=== PATIENT | male | born 1945 | race Hispanic/Latino ===

== ENCOUNTER 2018-01-23 18:49 | Observation (INO) | payer OTHER ==
[~2018-01-23] VITALS: Ht 175.3 cm; Wt 63.5 kg
[~2018-01-23 18:49] MED LIST: AMIODARONE HCL200 MG PO; DECARA25000 UNIT PO; LISINOPRIL10 MG PO; LISINOPRIL2.5 MG PO; LOPRESSOR25 MG PO; PROTONIX IV40 MG PO; XARELTO20 MG PO
[2018-01-23 20:34] LABS: CLARITY,URINE CLOUDY (CLEAR); COLOR,URINE YELLOW (YELLOW); LEUKOCYTE ESTERASE ,URINE TRACE (NEGATIVE); NITRITE,URINE NEGATIVE (NEGATIVE); PROTEIN,URINE DIPSTICK 2+ (NEGATIVE)
[2018-01-23 20:35] LABS: BILIRUBIN,URINE 1+ (NEGATIVE); KETONES,URINE TRACE (NEGATIVE); URINE UROBILINOGEN 1 mg/dL (0.2 - 1)
[2018-01-23 20:41] LABS: BACTERIA,URINE RARE /HPF; MUCUS,URINE RARE (RARE)
[2018-01-23] MEDS ORDERED: WARFARIN SODIU2.5 MG PO (21:11)
[2018-01-23] MEDS ORDERED: METOPROLOL TART50 MG PO (21:11)
[2018-01-23 21:31] LABS: BASOPHILS % 0.1 % (0.0-1.0); EOSINOPHILS # (AUTO) 0.1 (0.0-0.4); EOSINOPHILS % 1.1 % (0.0-6.0); HEMATOCRIT 36.5 % (38.2-49.6); HEMOGLOBIN 12.7 g/dL (14.0-18.0); LYMPHOCYTES # (AUTO) 1.2 (1.0-3.2); LYMPHOCYTES % 13.6 % (18.0-39.1); MEAN CORPUSCULAR HEMOGLOBIN 34.8 pg (28-32); MEAN CORPUSCULAR HGB CONC 34.8 g/dL (31-35); MONOCYTES # (AUTO) 0.8 (0.2-0.8); MONOCYTES % 8.9 % (4.4-11.3); NEUTROPHILS # (AUTO) 6.5 (2.1-6.9); NEUTROPHILS % 75.9 % (38.7-80.0); PLATELET COUNT 200 x10e3/uL (140-360); RED BLOOD COUNT 3.65 x10e6/uL (4.3-5.7); RED CELL DISTRIBUTION WIDTH 13.8 % (11.7-14.4)
[2018-01-23 21:41] LABS: INR 11.07
[2018-01-23 21:42] LABS: PARTIAL THROMBOPLASTIN TIME 101.8 seconds (23.8-35.5); PROTHROMBIN TIME 81.1 seconds (11.9-14.5)
[2018-01-23] MEDS ORDERED: PHYTONADIONE 10 MG/ML AMP PO STA (21:42)
[2018-01-23 21:47] LABS: ALBUMIN 4.1 g/dL (3.5-5.0); ALBUMIN/GLOBULIN RATIO 1.2 (0.8-2.0); ANION GAP 13.8 mmol/L (8-16); CALCIUM 9.8 mg/dL (8.4-10.2); CREATININE, SERUM 1.21 mg/dL (0.72-1.25); POTASSIUM 4.8 mmol/L (3.5-5.1)
[2018-01-23] MEDS ORDERED: PANTOPRAZOLE 40 MG 10ML VIAL IV STA (22:02)
[2018-01-23] MEDS ORDERED: CEFTRIAXONE SOD 1 GM VIAL IV SCH (22:15)
[2018-01-23] MEDS ORDERED: ONDANSETRON HCL INJ 2 MG/ML VIAL IV PRN (22:15)
[2018-01-24] VITALS (8 sets, daily range): BP systolic 131–165; BP diastolic 58–70
[2018-01-24] MEDS ORDERED: SODIUM CHLORIDE 0.9% 250ML 250 ML ONE (01:02)
[2018-01-24 05:57] LABS: BASOPHILS % 0.1 % (0.0-1.0); EOSINOPHILS % 0.4 % (0.0-6.0); HEMATOCRIT 31.2 % (38.2-49.6); HEMOGLOBIN 10.8 g/dL (14.0-18.0); LYMPHOCYTES # (AUTO) 1.3 (1.0-3.2); LYMPHOCYTES % 17.2 % (18.0-39.1); MEAN CORPUSCULAR HEMOGLOBIN 34.4 pg (28-32); MEAN CORPUSCULAR HGB CONC 34.6 g/dL (31-35); MEAN CORPUSCULAR VOLUME 99.4 fL (81-99); MONOCYTES # (AUTO) 0.7 (0.2-0.8); MONOCYTES % 9.1 % (4.4-11.3); NEUTROPHILS # (AUTO) 5.4 (2.1-6.9); NEUTROPHILS % 72.9 % (38.7-80.0); PLATELET COUNT 158 x10e3/uL (140-360); RED BLOOD COUNT 3.14 x10e6/uL (4.3-5.7); RED CELL DISTRIBUTION WIDTH 13.7 % (11.7-14.4)
[2018-01-24 06:11] LABS: INR 2.76; PROTHROMBIN TIME 27.4 seconds (11.9-14.5)
[2018-01-24 06:12] LABS: PARTIAL THROMBOPLASTIN TIME 49.3 seconds (23.8-35.5)
[2018-01-24 06:20] LABS: ALANINE AMINOTRANSFERASE 10 IU/L (0-55); ALBUMIN 3.5 g/dL (3.5-5.0); ALBUMIN/GLOBULIN RATIO 1.1 (0.8-2.0); ALKALINE PHOSPHATASE 64 IU/L (40-150); BLOOD UREA NITROGEN 19 mg/dL (7-26); BUN/CREATININE RATIO 21 (6-25); CARBON DIOXIDE 27 mmol/L (22-29); CHLORIDE 106 mmol/L (98-107); CREATININE, SERUM 0.92 mg/dL (0.72-1.25); EST GLOMERULAR FILTRATION RATE > 60 ML/MIN (60-); GLUCOSE 108 mg/dL (74-118); SODIUM 141 mmol/L (136-145)
[2018-01-24] MEDS ORDERED: PANTOPRAZOLE 40 MG 10ML VIAL IV SCH (09:00)
--- NOTE | 2018-01-24 09:50 | Discharge Summary ---
PRIMARY CARE PHYSICIAN: Dr. Mak Franco CHIEF COMPLAINT: Coagulation. INR is 11. SUMMARY: A 72-year-old male with atrial fibrillation, on warfarin 5 mg once a day. He is also on amiodarone. The patient came in with an INR of 11 with bruises, but no gross bleed. Patient did receive FFP. INR today is 2. Discussed with patient at length. He stated that previously he could not get Xarelto because of insurance coverage, but now the patient's [facility] does cover for Xarelto. The patient will restart Xarelto 20 mg once a day and start it on Monday. Discussed with the patient at length. He is on amiodarone and that drug has interaction with warfarin. The patient is stable. No bleeding. Discussed with the patient. He will go home today. Job#: [id number] FABIAN
== END 2018-01-24 10:50 | disposition home or self-care (01) ==
LOC: ER 18:49 → ERHOLD 22:02 → MED/SURG 01-24
PROVIDERS: ADMIT Internal Medicine; ATTEND Internal Medicine
DX: S50.12XA Contusion of left forearm, initial encounter (principal); S50.11XA Contusion of right forearm, initial encounter; T45.515A Adverse effect of anticoagulants, initial encounter; Z86.718 Personal history of other venous thrombosis and embolism; Z79.01 Long term (current) use of anticoagulants; I10 Essential (primary) hypertension; I25.10 Atherosclerotic heart disease of native coronary artery without angina pectoris; Z95.5 Presence of coronary angioplasty implant and graft; N40.0 Benign prostatic hyperplasia without lower urinary tract symptoms
CPT/HCPCS: 36415 ×2; 36430 ×2; 80053 ×2; 81001; 85025 ×2; 85610 ×2; 85730 ×2; 86850; 86900; 87086; 93005; 99284; G0378 ×2; J0696; J3430; J7050; P9017

== ENCOUNTER 2018-12-05 13:52 | Inpatient (IN) | payer OTHER ==
[~2018-12-05] VITALS: Ht 175.3 cm; Wt 60.8 kg
[~2018-12-05 13:52] MED LIST changes: +METOPROLOL TART50 MG PO; +WARFARIN SODIU2.5 MG PO
[2018-12-05] MEDS ORDERED: DILTIAZEM HCL VIAL 5 ML ONE (14:29)
[2018-12-05] MEDS ORDERED: DILTIAZEM HCL 5 MG/ML 5 ML VIAL IV ONE (14:30)
[2018-12-05] MEDS ORDERED: DILTIAZEM HCL 125 ML IV ONE (14:45)
[2018-12-05 15:12] LABS: BASOPHILS % 0.2 % (0.0-1.0); EOSINOPHILS # (AUTO) 0.1 (0.0-0.4); EOSINOPHILS % 1.8 % (0.0-6.0); HEMATOCRIT 46.6 % (38.2-49.6); HEMOGLOBIN 16.3 g/dL (14.0-18.0); LYMPHOCYTES # (AUTO) 1.3 (1.0-3.2); LYMPHOCYTES % 26.7 % (18.0-39.1); MEAN CORPUSCULAR HEMOGLOBIN 33.8 pg (28-32); MEAN CORPUSCULAR VOLUME 96.7 fL (81-99); MONOCYTES # (AUTO) 0.5 (0.2-0.8); MONOCYTES % 10.3 % (4.4-11.3); NEUTROPHILS % 60.6 % (38.7-80.0); PLATELET COUNT 190 x10e3/uL (140-360); RED BLOOD COUNT 4.82 x10e6/uL (4.3-5.7); RED CELL DISTRIBUTION WIDTH 12.8 % (11.7-14.4)
[2018-12-05 15:16] LABS: INR 1.05; PARTIAL THROMBOPLASTIN TIME 33.5 seconds (23.8-35.5); PROTHROMBIN TIME 14.2 seconds (11.9-14.5)
[2018-12-05 15:23] LABS: ALANINE AMINOTRANSFERASE 40 IU/L (0-55); ALBUMIN/GLOBULIN RATIO 1.2 (0.8-2.0); ALKALINE PHOSPHATASE 87 IU/L (40-150); BLOOD UREA NITROGEN 16 mg/dL (7-26); BUN/CREATININE RATIO 14 (6-25); CALCIUM 9.6 mg/dL (8.4-10.2); CARBON DIOXIDE 26 mmol/L (22-29); CHLORIDE 107 mmol/L (98-107); CREATININE, SERUM 1.14 mg/dL (0.72-1.25); EST GLOMERULAR FILTRATION RATE > 60 ML/MIN (60-); GLUCOSE 78 mg/dL (74-118); MAGNESIUM 2.2 MG/DL (1.3-2.1); SODIUM 141 mmol/L (136-145)
[2018-12-05 15:42] LABS: THYROID STIMULATING HORMONE 1.303 uIU/mL (0.350-4.940)
[2018-12-05] MEDS ORDERED: ASPIRIN 81 MG CHEW TAB PO ONE (16:00)
[2018-12-05] MEDS ORDERED: ONDANSETRON HCL INJ 2MG/ML 2ML 2 MG/ML VIAL IV PRN (16:00)
[2018-12-05] MEDS ORDERED: SODIUM CHLORIDE FLUSH 10 ML SYR INJ PRN (16:00)
[2018-12-05] MEDS: FAMOTIDINE 20 MG/2 ML VIAL IV SCH (16:21)
--- NOTE | 2018-12-05 16:40 | Diagnostic Imaging Report ---
Examination: Single AP view of the chest. COMPARISON: None. INDICATION: Chest pain DISCUSSION: Lines/tubes: None. Lungs: The lungs are well inflated and clear. There is no evidence of pneumonia or pulmonary edema. Pleura: There is no pleural effusion or pneumothorax. Heart and mediastinum: The heart and the mediastinum are unremarkable for portable, AP technique.. Bones and soft tissues: No acute bony abnormalities. Degenerative changes in the thoracic spine. IMPRESSION: 1. No acute cardiopulmonary abnormalities. Signed by: Dr. Ismael Ochoa M.D. on 12/05/2018 4:37 PM
--- NOTE | 2018-12-05 17:15 | NUR ---
RECEIVED PATIENT FROM ER. PATIENT A/O X3, EVEN RESPIRATIONS ON RA. TELE #23 RUNNING A FIB. PATIENT AMBULATORY NO SIGNS OF DISTRESS. RIGHT AC [address] NO CHEST PAIN OR DISCOMFORT. VITAL SIGNS STABLE. BED LOW, WHEELS LOCKED, SIDE RAILS X2, CALL LIGHT IN REACH. WILL CONTINUE TO MONITOR PATIENT.
[2018-12-05 17:20] VITALS: BP 168/94
[2018-12-05 17:36] VITALS: BP 168/94
[2018-12-05 17:39] VITALS: BP 168/94
[2018-12-05] MEDS ORDERED: DILTIAZEM HCL ER 120 MG CAP PO SCH (18:00)
[2018-12-05] MEDS ORDERED: DILTIAZEM HCL LA 120MG 120 MG CAP PO SCH (18:00)
--- NOTE | 2018-12-05 19:20 | NUR ---
Report taken from claudy Olea.walking rounds done.no chest pain voiced.stable condition.
[2018-12-05 20:00] VITALS: BP 121/86
[2018-12-05] MEDS ORDERED: ENOXAPARIN SOD INJ 40 MG/0.4 ML SYR SC SCH (21:00)
[2018-12-05 21:10] VITALS: BP 121/86
--- NOTE | 2018-12-05 22:20 | NUR ---
Assessment done.aaox4.ambulates and voided.iv right ac#20 g patent.blood maria luisa from right hand with b.set and sent to the lab.pt tolerated well.bed locked and in lowest position.phone and call light within reach.informed to call for assistance as needed.
[2018-12-05 23:11] LABS: CREATINE KINASE MB 0.7 ng/mL (0-5.0)
[2018-12-06] VITALS (7 sets, daily range): BP systolic 109–139; BP diastolic 71–93
--- NOTE | 2018-12-06 03:00 | NUR ---
No chest pain.resting comfortably in the bed.stable condition.
[2018-12-06] MEDS: FAMOTIDINE 20 MG/2 ML VIAL IV SCH (04:00)
[2018-12-06 06:26] LABS: CHOL/HDL RATIO 3.2 (3.9-4.7)
[2018-12-06 06:32] LABS: CREATINE KINASE MB 0.6 ng/mL (0-5.0)
--- NOTE | 2018-12-06 06:52 | NUR ---
Bed side report given to the oncoming rn.walking rounds done.stable condition.
--- NOTE | 2018-12-06 07:25 | NUR ---
RECEIVED PATIENT ASLEEP IN BED NO SIGNS OF DISTRESS. BED LOW, WHEELS LOCKED, SIDE RAILS X2. CALL LIGHT IN REACH WILL CONTINUE TO MONITOR PATIENT.
--- NOTE | 2018-12-06 09:20 | NUR ---
PATIENT A/O X3, EVEN RESPIRATIONS ON RA. TELE #23 A FIB. VITAL SIGNS STABLE. NO SIGNS OF DISTRESS. PATIENT AMBULATES INDEPENDENTLY. CALL LIGHT IN REACH WILL CONTINUE TO MONITOR PATIENT.
[2018-12-06] MEDS: ASPIRIN 81 MG ENTERIC COATED PO SCH (09:33)
[2018-12-06] MEDS: AMIODARONE HCL 200 MG TAB PO SCH ×2 (09:33→16:39)
[2018-12-06] MEDS: LISINOPRIL 10 MG TAB PO SCH ×2 (09:34→16:40)
[2018-12-06] MEDS: METOPROLOL TARTRATE 25 MG TAB PO SCH ×2 (09:34→16:40)
[2018-12-06] MEDS: APIXABAN 5 MG TABLET PO SCH ×2 (09:34→16:39)
[2018-12-06 14:57] LABS: CREATINE KINASE MB 0.7 ng/mL (0-5.0)
[2018-12-06] MEDS: FAMOTIDINE 20 MG TAB PO SCH (16:39)
--- NOTE | 2018-12-06 16:40 | History and Physical ---
CHIEF COMPLAINT: Increase in rapid heart rate. PRIMARY CARE PHYSICIAN: Mak Franco MD SOIL SURVEYOR: Ismael Gandara MD HISTORY: The patient is a 73-year-old male, had atrial fibrillation on previously anticoagulant therapy with Xarelto, but he was unable to afford the medication. Therefore, he went off it. The patient has an unreliable history. He basically complained of some increasing shortness of breath, palpitations, and went to the emergency room for evaluation. The patient's heart rate was elevated. The patient was subsequently placed on his medication, given diltiazem and admitted to the hospital for further evaluation. The patient is otherwise stable at this time. PAST MEDICAL HISTORY: Atrial fibrillation, hypertension, was on anticoagulant therapy. PAST SURGICAL HISTORY: Noncontributory. SOCIAL HISTORY: The patient does not smoke or use alcohol. No recreational drugs. ALLERGIES: NO KNOWN ALLERGIES. HOME MEDICATIONS: Metoprolol and lisinopril. REVIEW OF SYSTEMS: Resolved chest pain. No abdominal pain. No headache. No palpitation. PHYSICAL EXAMINATION: VITAL SIGNS: Temperature is 97, blood pressure 123/84, pulse rate 60, and respirations 18. GENERAL: The patient is not in acute distress. He is awake. HEENT: Normocephalic and atraumatic. Anicteric. NECK: Supple grossly. PULMONARY: Clear. CARDIOVASCULAR: Atrial fibrillation, rate controlled. ABDOMEN: Soft and unremarkable. EXTREMITIES: No cyanosis or edema. NEUROLOGIC: No gross focal deficit. LABORATORY DATA: Sodium is 141, potassium 4, chloride 107, bicarb 26, BUN 16, creatinine 1.1, and glucose 78. WBC 4.9, hemoglobin 16.3, hematocrit 46.6, and platelets is 190. INR is 1.05. Liver enzyme unremarkable. Chest x-ray is unremarkable. IMPRESSION: 1. Atrial fibrillation with rapid ventricular rate or response. 2. Hypertension. PLAN: Adjust the patient's rate control medication. The patient will get on Lovenox for now, depending on further evaluation with Dr. Ismael Gandara. Dr. Ismael Gandara will see the patient as Cardiology consultation. Check echocardiogram. The patient will need anticoagulation when he discharged home. MD MOISE Boland/MODL /[id number]
[2018-12-06] MEDS ORDERED: APIXABAN 5 MG TABLET PO SCH (17:00)
--- NOTE | 2018-12-06 17:06 | NUR ---
REPORT CALLED TO [facility] FOR ROOM 209. PATIENT BEING TRANSFERRED.
--- NOTE | 2018-12-06 17:14 | NUR ---
RCD PT FROM [facility] BY WHEELCHAIR PT IS ALERT AND ORIENTED VITALS CHECKED PT RESTING ON BED BED LOW AND LOCKED CALL LIGHT IN REACH
--- NOTE | 2018-12-06 17:15 | NUR ---
PATIENT TRANSFERRED TO ROOM 209 VIA WHEELCHAIR. PATIENT LEFT IN STABLE CONDITION.
--- NOTE | 2018-12-06 18:05 | Consultation ---
DATE OF CONSULTATION: Cardiology consultation CHIEF COMPLAINT: The patient is a 73-year-old with palpitations and shortness of breath. HISTORY OF PRESENT ILLNESS: The patient is a 73-year-old, who noticed his heart racing and he was short of breath. The patient came to the emergency room, and was found to be in atrial fibrillation. The patient has had no nausea, no vomiting, no abdominal pain. PAST MEDICAL HISTORY: Significant for, 1. Previous atrial fibrillation. 2. Previous ablation five years ago. 3. Previous reaction to warfarin. SOCIAL HISTORY: The patient does not drink, does not smoke. FAMILY HISTORY: There is no known family history of coronary artery disease. PHYSICAL EXAMINATION: GENERAL: The patient is a well-developed, well-nourished male, in no obvious distress. VITAL SIGNS: Temperature 96.7, pulse 81, and blood pressure is 112/71. HEAD, EARS, EYES, NOSE, AND THROAT: The patient's cranium was normocephalic and atraumatic. Extraocular muscles were intact. Sclerae are anicteric. Pupils are equal, round, reactive to light. There was no pallor, cyanosis of the oral mucosa. There is no erythema or edema of the throat. NECK: Supple. No jugular venous distention. No carotid bruits. CHEST: Clear to auscultation and percussion. CARDIAC: Demonstrated normal S1 and S2 with a short 2/6 systolic murmur. ABDOMEN: Demonstrated good bowel sounds. No tenderness and no masses. EXTREMITIES: No clubbing, no cyanosis, and no edema. NEUROLOGIC: The patient was alert and oriented x3. Cranial nerves II through XII are intact. Motor strength was +5/+5 in all limbs. DIAGNOSTIC DATA: The patient's EKG demonstrated atrial fibrillation. IMPRESSION: The patient is a 73-year-old with recurrent atrial fibrillation. RECOMMENDATIONS: My recommendations are as follows: 1. The patient will need to be started on amiodarone. 2. The patient will need to be started on Eliquis for anticoagulation. 3. An echocardiogram has been ordered. 4. An EP consult has been requested in order to evaluate the possibility of repeat ablation for atrial fibrillation. MD RANDALL Ball/MODL /[id number] cc: MD Jamel Calvo MD
--- NOTE | 2018-12-06 19:00 | NUR ---
PT RESTING ON BED BED SIDE REPORT GIVEN TO ONCOMING NURSE
--- NOTE | 2018-12-06 20:10 | NUR ---
FAMILY MEMBERS VISITING WITH THE PATIENT, NO ACUTE DISTRESS OBSERVED, HE DENIES DIZZINESS OR PAIN. CALL LIGHT WITHIN EASY REACH, HE'S INSTRUCTED TO CALL FOR ASSISTANCE NEEDED.
[2018-12-07] VITALS (13 sets, daily range): BP systolic 101–128; BP diastolic 55–107
--- NOTE | 2018-12-07 00:25 | NUR ---
WALKING ROUNDS MADE, PATIENT OBSERVED SOUNDLY ASLEEP WITHOUT RESPIRATORY DISTRESS. HEART RHYTHM REMAINS AT A-FIB.
--- NOTE | 2018-12-07 04:05 | NUR ---
PATIENT IS SOUNDLY ASLEEP, NO DISTRESS OBSERVED. RHYTHM A-FIB WITH RATE BETWEEN 130-136 HOWEVER HE'S ASYMPTOMATIC OF ELEVATED HEART RATE. WILL CONTINUE TO CLOSELY MONITOR.
--- NOTE | 2018-12-07 06:53 | NUR ---
DR FARR IS ON THE UNIT TO SEE THE PATIENT, HE'S MADE AWARE THAT THE PATIENT CONDITION IS STABLE HOWEVER HIS HEART RATE IS BETWEEN 130-136. MADE ADJUSTMENTS TO THE METOPROLOL AND AMIODARONE.
[2018-12-07] MEDS: APIXABAN 5 MG TABLET PO SCH ×2 (09:39→18:08)
[2018-12-07] MEDS: FAMOTIDINE 20 MG TAB PO SCH ×2 (09:39→16:30)
[2018-12-07] MEDS: ASPIRIN 81 MG ENTERIC COATED PO SCH (09:39)
[2018-12-07] MEDS: AMIODARONE HCL 200 MG TAB PO SCH ×4 (09:39→22:14)
[2018-12-07] MEDS: LISINOPRIL 10 MG TAB PO SCH ×2 (09:40→17:00)
[2018-12-07] MEDS: METOPROLOL TARTRATE 25 MG TAB PO SCH ×3 (09:40→22:14)
--- NOTE | 2018-12-07 12:44 | NUR ---
IMM letter delivered and explained to pt. He verbalized understanding. Signed copy placed in chart. Copy to pt's transition of care folder.
--- NOTE | 2018-12-07 15:37 | NUR ---
Patient is being taken to [facility]. Notified Dr. Gandara that patient had Eliquis this am. OK per Dr. Gandara to go ahead with heart catheterization. ALso notified him patient does not want to have life vest
[2018-12-07] MEDS ORDERED: MIDAZOLAM HCL 2 MG/2 ML VIAL ONE (15:55)
[2018-12-07] MEDS ORDERED: VERAPAMIL HCL 2.5 MG/ML 2 ML VIAL ONE (15:55)
[2018-12-07] MEDS ORDERED: LIDOCAINE HCL 2% LOCAL 20 ML VIAL ONE (15:55)
[2018-12-07] MEDS ORDERED: HEPARIN SOD/SOD CHLORIDE 2,000 ML ONE (15:55)
[2018-12-07] MEDS ORDERED: HEPARIN SOD (PORCINE) 1000 UNIT/ML 30ML ONE (15:55)
[2018-12-07] MEDS ORDERED: NITROGLYCERIN/D5W 200 MCG/ML 250 ML ONE (15:56)
[2018-12-07] MEDS ORDERED: SODIUM CHLORIDE 0.9% 1000ML 1,000 ML ONE (15:56)
[2018-12-07] MEDS ORDERED: IOPAMIDOL 370 MG/ML 200 ML INFUS..BTL INJ ONE (15:56)
[2018-12-07] MEDS ORDERED: AMIODARONE HCL 150 MG in DEXTROSE 5% 100ML 100 ML IV ONE (17:00)
[2018-12-07] MEDS ORDERED: AMIODARONE HCL 900 MG in DEXTROSE 5 % 500ML BOTTLE 500 ML IV ONE ×2 (17:00→23:30)
[2018-12-07] MEDS ORDERED: FENTANYL CITRATE/PF 100MCG/2 ML INJ ONE (17:04)
--- NOTE | 2018-12-07 17:14 | NUR ---
Patient has been transferred to ICU from medical laboratory technicians to start Amiodorone drip per Steve in the medical laboratory technicians
--- NOTE | 2018-12-07 17:56 | NUR ---
recvd from manager lab. amio started, tolerates well. family at bedside. updated poc. pt and family verbalize understanding and consent. rt groin intact. rt wrist with armband proceeding as ordered. bedrest until 2099. pt verbalizes understanding.
--- NOTE | 2018-12-07 20:45 | NUR ---
TR band removed and 4x4 pressure dressing applied. Pt instructed to help monitor the site for bleeding. Pt family member at the beside as well.
--- NOTE | 2018-12-07 23:27 | Operative Report ---
DATE OF PROCEDURE: SURGEON: Ismael Gandara MD INDICATIONS: 1. Congestive heart failure. 2. Coronary artery disease. PROCEDURE PERFORMED: Includes left heart catheterization. COMPLICATIONS: None. ANESTHESIA: Versed, fentanyl, and lidocaine. TECHNIQUE: The right groin was draped and prepped in the usual fashion. The area was anesthetized with lidocaine. Standard Seldinger technique was used to place a 6-Ethiopian sheath into the right femoral artery without difficulty. A JL4 catheter was used to selectively engage the left coronary artery. A 3DRC catheter was used to selectively engage the right coronary artery. A pigtail catheter was used to perform a left ventriculogram. Angio-Seal device was used for closure. There were no complications. RESULTS: 1. There was a normal left main trunk. 2. There was a large left anterior descending artery, which gave rise to a medium-sized diagonal branch. There was minimal disease in the left anterior descending artery and diagonal branch. 3. There was a medium-sized AV circumflex artery, which gave rise to a large bifurcating obtuse marginal branch. There was minimal disease in the circumflex system. 4. There was a large dominant right coronary artery with minimal disease. 5. There was an enlarged left ventricle with severe global left ventricular dysfunction and an ejection fraction of 20%. CONCLUSION: Minimal coronary artery disease with an enlarged left ventricle and severe left ventricular dysfunction. The patient's ejection fraction was 20%. Ismael Gandara MD DSH/MODL /[id number] cc: Jamel Alicea MD
[2018-12-08] VITALS (12 sets, daily range): BP systolic 119–133; BP diastolic 87–112
[2018-12-08] MEDS: AMIODARONE HCL 200 MG TAB PO SCH ×2 (06:59→20:58)
[2018-12-08] MEDS: METOPROLOL TARTRATE 25 MG TAB PO SCH ×3 (06:59→20:59)
[2018-12-08] MEDS: ASPIRIN 81 MG ENTERIC COATED PO SCH (09:21)
[2018-12-08] MEDS: LISINOPRIL 10 MG TAB PO SCH ×2 (09:21→16:37)
[2018-12-08] MEDS: APIXABAN 5 MG TABLET PO SCH ×2 (09:21→16:37)
[2018-12-08] MEDS: FAMOTIDINE 20 MG TAB PO SCH ×2 (09:21→16:37)
--- NOTE | 2018-12-08 09:31 | NUR ---
Dr Mirtha Gandara to bedside; plan is to d/c Amio gtt at 1700, transfer patient to Med Surg overnight, and discharge patient home tomorrow at which time he will follow up with Dr Fairbanks for probable ablation and ICD placement as an outpatient.
[2018-12-08 10:48] LABS: ALANINE AMINOTRANSFERASE 22 IU/L (0-55); ALBUMIN 3.5 g/dL (3.5-5.0); ALBUMIN/GLOBULIN RATIO 1.4 (0.8-2.0); ALKALINE PHOSPHATASE 69 IU/L (40-150); BLOOD UREA NITROGEN 14 mg/dL (7-26); BUN/CREATININE RATIO 14 (6-25); CALCIUM 9.4 mg/dL (8.4-10.2); CARBON DIOXIDE 24 mmol/L (22-29); CHLORIDE 106 mmol/L (98-107); EST GLOMERULAR FILTRATION RATE > 60 ML/MIN (60-); GLUCOSE 99 mg/dL (74-118); SODIUM 139 mmol/L (136-145)
[2018-12-08 10:58] LABS: MAGNESIUM 1.6 MG/DL (1.3-2.1)
--- NOTE | 2018-12-08 18:43 | NUR ---
Luluo off at 1700, called Dr Mirtha Gandara and Dr Fairbanks who agree that plan to trx to Med Surg with tele still appropriate and okay that rhythm has stayed A fib/flutter.
--- NOTE | 2018-12-08 19:45 | NUR ---
Transfer report called to Jacqui BAE and Michelle BAE. Pt transferred via wheelchair to room 101. No signs of distress noted, pt reports no new pain at this time only previously report mild (2) right groin tenderness. Tele box number 30.
--- NOTE | 2018-12-08 19:54 | NUR ---
Received patient from the ICU via wheelchair. IV intact patient A&Ox3. All personal belongings with patient upon arrival to the unit. Patient was placed on telemetry in room by ICU nurse. No complaints at this time.
--- NOTE | 2018-12-08 21:16 | Consultation ---
DATE OF CONSULTATION: 12/07/2018 REASON FOR CONSULTATION: Cardiomyopathy. HISTORY OF PRESENT ILLNESS: This is a 73-year-old gentleman with history of cardiomyopathy, congestive heart failure class III, chronic persistent atrial fibrillation with rapid ventricular response, who states that he had an ablation and he was recommended a LifeVest in the past due to low ejection fraction about 2 years ago, he then did not wear the LifeVest, he has been taking the medicines and progressively feels more short of breath than usual, presented to the hospital with decompensated heart failure, he is currently receiving amiodarone for rate control and he has been in atrial fibrillation with rapid ventricular response. The patient has an ejection fraction of 25%. REVIEW OF SYSTEMS: CONSTITUTIONAL: As per HPI. CARDIOVASCULAR: As per HPI. RESPIRATORY: Negative. GASTROINTESTINAL: Negative. GENITOURINARY: Negative. MUSCULOSKELETAL: Negative. EYES: Negative. ENT: Negative. ALLERGIC/IMMUNOLOGIC: Negative. PSYCHIATRIC: Negative. PAST MEDICAL HISTORY: 1. Cardiomyopathy. 2. Atrial fibrillation. PAST SURGICAL HISTORY: Denies. FAMILY HISTORY: No premature coronary artery disease. SOCIAL HISTORY: Denies alcohol or smoking. PHYSICAL EXAMINATION: VITAL SIGNS: Blood pressure 138/60, pulse 120, and O2 saturation 98%. GENERAL: No acute distress. HEENT: Moist mucous membranes. CARDIOVASCULAR: Irregular. RESPIRATORY: Clear. ABDOMEN: Soft and nontender. MUSCULOSKELETAL: 2+ pedal pulses. NEUROLOGIC: No focal deficits. SKIN: No lesions. PSYCHIATRIC: Normal thought process. IMAGING DATA: EKG, atrial fibrillation with rapid ventricular response. IMPRESSION: 1. Severe cardiomyopathy with ejection fraction of 25% refractory to medical therapy. 2. Congestive heart failure class III. 3. Chronic atrial fibrillation with rapid ventricular response refractory to medical therapy. RECOMMENDATIONS: I had a long discussion with the patient, explained to him that he has risk for sudden cardiac , that he has indication for a defibrillator, however, due to his rapid ventricular response and atrial fibrillation refractory, will benefit from AV node ablation. In that case, we will consider a biventricular defibrillator and AV node ablation, this was discussed in detail. The patient was understanding, would like to discuss with family. Agree with undergoing coronary angiogram by Dr. Gandara. Based on findings, we will schedule procedure as an outpatient. In the meantime, agree with continuing anticoagulation and also amiodarone for rate control and beta blockers. Thank you for letting us participate in Mr. Lr' healthcare. MD MELVIN Godfrey/XIN /[id number]
[2018-12-09] VITALS: BP 116/83
[2018-12-09 04:00] VITALS: BP 121/80
[2018-12-09] MEDS: AMIODARONE HCL 200 MG TAB PO SCH (05:28)
[2018-12-09] MEDS: METOPROLOL TARTRATE 25 MG TAB PO SCH (05:28)
--- NOTE | 2018-12-09 06:26 | NUR ---
SPOKE WITH MD RICHARD CONCERNING CHANGE ADMITTING MD AVIVA PRO ORDER. NEW ORDERS RECEIVED TO CANCEL CHANGE ADMITTING ORDER. MD RICHARD TO REMAIN ADMITTING .
--- NOTE | 2018-12-09 07:00 | NUR ---
RECEIVED PT RESTING IN BED EYES CLOSED RESPIRATIONS EVEN AND NON LABORED NO S/S OF DISTRESS NOTED. CALL LIGHT WITHIN REACH. BED LOCKED AND IN LOWEST POSITION. WILL CONTINUE TO MONITOR.
[2018-12-09 08:11] VITALS: BP 128/95
[2018-12-09 08:30] VITALS: BP 128/95
[2018-12-09] MEDS: LISINOPRIL 10 MG TAB PO SCH (08:35)
[2018-12-09] MEDS: APIXABAN 5 MG TABLET PO SCH (08:35)
[2018-12-09] MEDS: FAMOTIDINE 20 MG TAB PO SCH (08:35)
[2018-12-09] MEDS: ASPIRIN 81 MG ENTERIC COATED PO SCH (08:35)
--- NOTE | 2018-12-09 09:39 | Discharge Summary ---
CONSULTANTS: 1. Dr. Ismael Gandara. 2. Dr. Shahid Parada. PCP: Dr. Mak Franco. FINAL DIAGNOSES: 1. Nonischemic cardiomyopathy, ejection fraction of 20%. 2. Hypertension and rapid ventricular rate response atrial fibrillation. 3. Status post cardiac catheterization. No PCI. No ischemic coronaries noticed. SUMMARY: The patient is a 73 years old male, who came in with atrial fibrillation with rapid ventricular rate response. First off the patient will need ICD and the patient want to do that as an outpatient with Dr. Parada. He does not want that at this time. He has also refused LifeVest. The patient stated that he had one before and he absolutely does not want one at this time. The patient is already instructed on monitoring his condition at home. I advised the patient regarding the need for nonexertional activities. The patient expressed understanding. He does understand the risks of not having a LifeVest and ICD at this time. The patient will go home today. He will follow up with Dr. Ismael Gandara and Dr. Fairbanks as an outpatient. Discharge instructions as follows. All his home medications have been changed. New prescription is Eliquis 5 mg twice a day, amiodarone 200 mg twice a day, metoprolol tartrate 50 mg b.i.d., lisinopril 5 mg b.i.d., and Pepcid as needed. Again, the patient is stable. Vital signs are stable. He will follow up as an outpatient with further management and ICD as an outpatient. The patient is to follow up with Dr. Mak Franco as an outpatient as well for medication reconciliation. The patient was discharged home today. MD MOISE Boland/RUSSL /[id number]
[2018-12-09] MEDS ORDERED: ELIQUIS PO (09:45)
[2018-12-09] MEDS ORDERED: AMIODARONE HCL200 MG PO (09:45)
[2018-12-09] MEDS ORDERED: PEPCID20 MG PO (09:51)
== END 2018-12-09 10:11 | disposition home or self-care (01) | DRG 287 ==
LOC: ER 13:52 → ERHOLD 16:06 → MED/SURG 17:14 → MED/SURG2 12-06 17:11 → ICU 12-07 17:19 → MED/SURG 12-08 19:59
PROVIDERS: ADMIT Internal Medicine; ATTEND Internal Medicine
PROC: 4A023N7 Measurement of Cardiac Sampling and Pressure, Left Heart, Percutaneous Approach (ICD-10-PCS; principal; 2018-12-07)
PROC: B2111ZZ Fluoroscopy of Multiple Coronary Arteries using Low Osmolar Contrast (ICD-10-PCS; 2018-12-07)
PROC: B2151ZZ Fluoroscopy of Left Heart using Low Osmolar Contrast (ICD-10-PCS; 2018-12-07)
DX: I48.0 Paroxysmal atrial fibrillation (principal); I48.92 Unspecified atrial flutter; I50.9 Heart failure, unspecified; I25.10 Atherosclerotic heart disease of native coronary artery without angina pectoris; Z82.49 Family history of ischemic heart disease and other diseases of the circulatory system; Z79.01 Long term (current) use of anticoagulants; I11.0 Hypertensive heart disease with heart failure
CPT/HCPCS: 36415; 71045; 80053; 80061; 82550; 82553; 83735; 83880; 84100; 84443; 84484; 85025; 85610; 85730; 93005; 93306; 93458; 99284; C1769; C1887; J1644; J1650; J2001; J2250; J7030; Q9967

== ENCOUNTER 2022-10-14 14:43 | Observation (INO) | payer MEDICARE, OTHER ==
[2022-10-14] VITALS (11 sets, daily range): BP systolic 110–131; BP diastolic 82–100
[~2022-10-14] VITALS: Ht 175.3 cm; Wt 63.5 kg
[~2022-10-14 14:43] MED LIST changes: +ELIQUIS PO; +PEPCID20 MG PO
[2022-10-14] MEDS ORDERED: DILTIAZEM HCL 5 MG/ML 5 ML VIAL IV STA (14:51)
[2022-10-14] MEDS ORDERED: DILTIAZEM HCL VIAL 5 ML ONE (14:51)
[2022-10-14] MEDS ORDERED: DILTIAZEM HCL 125 ML IV SCH ×2 (15:00→16:45)
[2022-10-14 15:06] LABS: BASOPHILS % 0.2 % (0.0-1.0); EOSINOPHILS # (AUTO) 0.1 (0.0-0.4); EOSINOPHILS % 1.2 % (0.0-6.0); HEMATOCRIT 50.7 % (38.2-49.6); HEMOGLOBIN 17.1 g/dL (14.0-18.0); LYMPHOCYTES # (AUTO) 3.3 (1.0-3.2); LYMPHOCYTES % 36.3 % (18.0-39.1); MEAN CORPUSCULAR HEMOGLOBIN 32.4 pg (28-32); MEAN CORPUSCULAR HGB CONC 33.7 g/dL (31-35); MEAN CORPUSCULAR VOLUME 96.2 fL (81-99); MONOCYTES # (AUTO) 0.6 (0.2-0.8); MONOCYTES % 7.1 % (4.4-11.3); NEUTROPHILS # (AUTO) 4.9 (2.1-6.9); NEUTROPHILS % 54.9 % (38.7-80.0); PLATELET COUNT 234 x10e3/uL (140-360); RED BLOOD COUNT 5.27 x10e6/uL (4.3-5.7); RED CELL DISTRIBUTION WIDTH 11.8 % (11.7-14.4)
[2022-10-14 15:15] LABS: PROTHROMBIN TIME 13.7 seconds (11.9-14.5)
[2022-10-14 15:16] LABS: PARTIAL THROMBOPLASTIN TIME 32.2 seconds (23.8-35.5)
[2022-10-14 15:23] LABS: ALANINE AMINOTRANSFERASE 15 IU/L (0-55); ALBUMIN/GLOBULIN RATIO 1.2 (0.8-2.0); ALKALINE PHOSPHATASE 81 IU/L (40-150); ANION GAP 17.2 mmol/L (8-16); BLOOD UREA NITROGEN 13 mg/dL (7-26); BUN/CREATININE RATIO 11 (6-25); CALCIUM 9.3 mg/dL (8.4-10.2); CARBON DIOXIDE 21 mmol/L (22-29); CHLORIDE 106 mmol/L (98-107); CREATINE KINASE 53 IU/L (30-200); CREATININE, SERUM 1.17 mg/dL (0.72-1.25); GLUCOSE 109 mg/dL (74-118); MAGNESIUM 1.7 MG/DL (1.3-2.1); POTASSIUM 4.2 mmol/L (3.5-5.1); SODIUM 140 mmol/L (136-145)
[2022-10-14 15:34] LABS: B-TYPE NATRIURETIC PEPTIDE2 237.2 pg/mL (0-100)
[2022-10-14] MEDS ORDERED: ASPIRIN 81 MG CHEW TAB PO ONE (16:45)
[2022-10-14] MEDS ORDERED: SODIUM CHLORIDE FLUSH 10 ML SYR INJ PRN (16:45)
[2022-10-14] MEDS ORDERED: ENOXAPARIN SOD INJ 60 MG/0.6 ML SYR SC ONE (17:00)
[2022-10-14] MEDS ORDERED: ZOLPIDEM TARTRATE 5 MG TAB PO PRN (17:30)
[2022-10-14] MEDS ORDERED: ONDANSETRON HCL INJ 2MG/ML 2ML 2 MG/ML VIAL IV PRN (17:30)
[2022-10-14] MEDS: FAMOTIDINE 20 MG TAB PO SCH (18:10)
[2022-10-14] MEDS: ATORVASTATIN 40 MG TAB PO SCH (21:15)
[2022-10-14] MEDS: AMIODARONE HCL 200 MG TAB PO SCH (21:16)
[2022-10-15] VITALS (21 sets, daily range): BP systolic 87–132; BP diastolic 44–100
[2022-10-15 01:23] LABS: CREATINE KINASE MB 1.4 ng/mL (0-5.0)
[2022-10-15 06:53] LABS: BASOPHILS % 0.2 % (0.0-1.0); EOSINOPHILS # (AUTO) 0.1 (0.0-0.4); EOSINOPHILS % 1.9 % (0.0-6.0); HEMATOCRIT 44.7 % (38.2-49.6); HEMOGLOBIN 15.4 g/dL (14.0-18.0); LYMPHOCYTES # (AUTO) 1.1 (1.0-3.2); LYMPHOCYTES % 21.4 % (18.0-39.1); MEAN CORPUSCULAR HGB CONC 34.5 g/dL (31-35); MEAN CORPUSCULAR VOLUME 95.7 fL (81-99); MONOCYTES # (AUTO) 0.4 (0.2-0.8); MONOCYTES % 7.3 % (4.4-11.3); NEUTROPHILS # (AUTO) 3.7 (2.1-6.9); PLATELET COUNT 178 x10e3/uL (140-360); RED BLOOD COUNT 4.67 x10e6/uL (4.3-5.7); RED CELL DISTRIBUTION WIDTH 11.7 % (11.7-14.4)
[2022-10-15 06:55] LABS: CHOL/HDL RATIO 3.8 (3.9-4.7)
[2022-10-15 06:57] LABS: ALBUMIN 3.3 g/dL (3.5-5.0); ALBUMIN/GLOBULIN RATIO 1.2 (0.8-2.0); ANION GAP 13.9 mmol/L (8-16); CALCIUM 8.6 mg/dL (8.4-10.2); CREATININE, SERUM 0.81 mg/dL (0.72-1.25); POTASSIUM 3.9 mmol/L (3.5-5.1)
[2022-10-15 07:04] LABS: CREATINE KINASE MB 1.3 ng/mL (0-5.0)
[2022-10-15] MEDS: APIXABAN 5 MG TABLET PO SCH ×2 (08:14→16:14)
[2022-10-15] MEDS: FAMOTIDINE 20 MG TAB PO SCH ×2 (08:16→16:15)
[2022-10-15] MEDS: LISINOPRIL 10 MG TAB PO SCH ×2 (08:16→08:18)
[2022-10-15] MEDS: AMIODARONE HCL 200 MG TAB PO SCH ×2 (08:16→16:15)
[2022-10-15] MEDS ORDERED: MUPIROCIN 2% OINT 22 GM TUBE TOP SCH (09:00)
[2022-10-15] MEDS ORDERED: NON-FORMULARY MEDICATION ([Eliquis] 5 MG) PO SCH (09:00)
[2022-10-15] MEDS ORDERED: AMIODARONE HCL 200 MG TAB PO SCH (09:00)
[2022-10-15] MEDS ORDERED: DEXTROSE 50% SYRINGE 50 ML IV PRN (09:45)
[2022-10-15] MEDS ORDERED: BENZONATATE 100 MG CAP PO PRN (09:45)
[2022-10-15] MEDS ORDERED: DIPHENHYDRAMINE HCL 25 MG CAP PO PRN (09:45)
[2022-10-15] MEDS ORDERED: ACETAMINOPHEN 325 MG TAB PO PRN (09:45)
[2022-10-15] MEDS ORDERED: MELATONIN 5 MG TABLET PO PRN (09:45)
[2022-10-15] MEDS ORDERED: LIDOCAINE 4% PATCH TP PRN (09:45)
[2022-10-15] MEDS ORDERED: ALBUTEROL/IPRATROPIUM 3 ML NEB NEB PRN (09:45)
[2022-10-15] MEDS ORDERED: DOCUSATE SODIUM 100 MG CAP PO PRN (09:45)
[2022-10-15] MEDS ORDERED: SIMETHICONE 80 MG CHEW PO PRN (09:45)
[2022-10-15] MEDS ORDERED: POTASSIUM CHLORIDE 20 MEQ TAB CR PO PRN (09:45)
[2022-10-15] MEDS ORDERED: IPRATROPIUM BROMIDE 0.02% 2.5 ML NEB NEB PRN (10:00)
[2022-10-15] MEDS ORDERED: ALBUTEROL SULF 0.083% NEB SOLN 3 ML NEB NEB PRN (10:00)
[2022-10-15 12:23] LABS: CREATINE KINASE MB 1.2 ng/mL (0-5.0)
[2022-10-15] MEDS: ATORVASTATIN 40 MG TAB PO SCH (20:02)
[2022-10-16 01:47] VITALS: BP 111/74
[2022-10-16 03:00] VITALS: BP 119/67
[2022-10-16 07:00] VITALS: BP 113/74
[2022-10-16 07:29] LABS: BASOPHILS % 0.3 % (0.0-1.0); EOSINOPHILS # (AUTO) 0.2 (0.0-0.4); EOSINOPHILS % 2.9 % (0.0-6.0); HEMATOCRIT 43.8 % (38.2-49.6); HEMOGLOBIN 14.9 g/dL (14.0-18.0); LYMPHOCYTES # (AUTO) 1.7 (1.0-3.2); LYMPHOCYTES % 29.3 % (18.0-39.1); MEAN CORPUSCULAR HEMOGLOBIN 32.8 pg (28-32); MEAN CORPUSCULAR VOLUME 96.5 fL (81-99); MONOCYTES # (AUTO) 0.4 (0.2-0.8); MONOCYTES % 6.3 % (4.4-11.3); NEUTROPHILS # (AUTO) 3.6 (2.1-6.9); NEUTROPHILS % 60.9 % (38.7-80.0); PLATELET COUNT 181 x10e3/uL (140-360); RED BLOOD COUNT 4.54 x10e6/uL (4.3-5.7); RED CELL DISTRIBUTION WIDTH 11.7 % (11.7-14.4)
[2022-10-16] MEDS ORDERED: PANTOPRAZOLE SOD 40 MG TABEC PO SCH (07:30)
[2022-10-16 08:00] LABS: ANION GAP 14.7 mmol/L (8-16); CALCIUM 8.7 mg/dL (8.4-10.2); CHOL/HDL RATIO 3.5 (3.9-4.7); CREATININE, SERUM 0.92 mg/dL (0.72-1.25); MAGNESIUM 1.8 MG/DL (1.3-2.1); POTASSIUM 3.7 mmol/L (3.5-5.1)
[2022-10-16] MEDS: APIXABAN 5 MG TABLET PO SCH ×2 (08:13→16:34)
[2022-10-16] MEDS: LISINOPRIL 10 MG TAB PO SCH (08:14)
[2022-10-16] MEDS: FAMOTIDINE 20 MG TAB PO SCH ×2 (08:14→16:34)
[2022-10-16] MEDS: AMIODARONE HCL 200 MG TAB PO SCH ×2 (08:14→16:34)
[2022-10-16 08:21] LABS: THYROID STIMULATING HORMONE 2.224 uIU/mL (0.350-4.940)
[2022-10-16 09:29] VITALS: BP 119/77
[2022-10-16] MEDS ORDERED: POTASSIUM CHLORIDE 20 MEQ TAB CR PO ONE (09:30)
[2022-10-16 11:00] VITALS: BP 112/77
[2022-10-16] MEDS ORDERED: LISINOPRIL10 MG PO (14:53)
[2022-10-16] MEDS ORDERED: ATORVASTATIN CA40 MG PO (14:53)
== END 2022-10-16 17:25 | disposition home or self-care (01) ==
LOC: ER 14:49 → ERHOLD 16:43 → INTOOBSV 16:43 → ICU 19:30 → MED/SURG 10-16 13:58
PROVIDERS: ADMIT Internal Medicine; ATTEND Internal Medicine
DX: I48.20 Chronic atrial fibrillation, unspecified (principal); I48.92 Unspecified atrial flutter; I11.0 Hypertensive heart disease with heart failure; I50.42 Chronic combined systolic (congestive) and diastolic (congestive) heart failure; N17.9 Acute kidney failure, unspecified; I25.10 Atherosclerotic heart disease of native coronary artery without angina pectoris; N40.0 Benign prostatic hyperplasia without lower urinary tract symptoms; R91.1 Solitary pulmonary nodule; Z79.01 Long term (current) use of anticoagulants; Z95.5 Presence of coronary angioplasty implant and graft; Z82.49 Family history of ischemic heart disease and other diseases of the circulatory system; Z83.3 Family history of diabetes mellitus
CPT/HCPCS: 0223U; 36415; 71045; 71250; 80048; 80053; 80061; 82550; 82553; 83036; 83605; 83735; 83880; 84443; 84484; 85025; 85610; 85730; 93005; 93306; 96360; 99284; G0378; J1650

== ENCOUNTER 2023-01-14 08:47 | Emergency (ER) | payer MEDICARE ==
[~2023-01-14] VITALS: Ht 175.3 cm; Wt 63.5 kg
[~2023-01-14 08:47] MED LIST changes: +ATORVASTATIN CA40 MG PO
[2023-01-14 08:50] VITALS: O2SAT 98
[2023-01-14] MEDS ORDERED: MUPIROCIN22 GM TOP (09:03)
[2023-01-14] MEDS ORDERED: CLINDAMYCIN HC150 MG PO (09:03)
== END 2023-01-14 09:31 | disposition home or self-care (01) ==
LOC: ER 08:50
DX: L02.416 Cutaneous abscess of left lower limb (principal); N40.0 Benign prostatic hyperplasia without lower urinary tract symptoms; I25.10 Atherosclerotic heart disease of native coronary artery without angina pectoris; I48.91 Unspecified atrial fibrillation; I11.0 Hypertensive heart disease with heart failure; I50.9 Heart failure, unspecified; Z95.5 Presence of coronary angioplasty implant and graft; Z86.718 Personal history of other venous thrombosis and embolism
CPT/HCPCS: 99283